=== PATIENT | male | born 1960 | race Two or more races ===

== ENCOUNTER 2018-09-10 12:47 | Emergency (ER) | payer OTHER ==
[2018-09-10 13:43] LABS: URINE BLOOD (Dip) POC Trace-intact (NEGATIVE); URINE KETONES (Dip) POC Negative (NEGATIVE); URINE LEUKOCYTE EST (Dip) POC 2+ (NEGATIVE); URINE NITRITE (Dip) POC Negative (NEGATIVE); URINE TOTAL PROTEIN POC Trace (NEGATIVE)
[2018-09-10 13:43] LABS: URINE PH (Dip) POC 6.5 (5.0-8.5)
[2018-09-10 13:54] LABS: ADD MAN DIFF? NO
[2018-09-10 13:57] LABS: WHITE BLOOD COUNT 20.9 10^3/ul (4.8-10.8)
[2018-09-10 13:57] LABS: BASOPHIL # 0.1 10^3/ul (0.0-0.1); BASOPHILS % 0.4 % (0.0-2.0); EOSINOPHILS # 0.1 10^3/ul (0.0-0.5); EOSINOPHILS % 0.2 % (0.0-7.0); HEMATOCRIT 43.7 % (42.0-52.0); HEMOGLOBIN 15.1 g/dl (14.0-18.0); LYMPHOCYTES # 1.5 10^3/ul (0.8-2.9); LYMPHOCYTES % 7.3 % (15.0-51.0); MEAN CORPUSCULAR HEMOGLOBIN 29.5 pg (29.0-33.0); MEAN CORPUSCULAR HGB CONC 34.6 g/dl (32.0-37.0); MEAN CORPUSCULAR VOLUME 85.4 fl (82.0-101.0); MEAN PLATELET VOLUME 10.1 fl (7.4-10.4); MONOCYTE # 1.1 10^3/ul (0.3-0.9); MONOCYTES % 5.1 % (0.0-11.0); PLATELET COUNT 247 10^3/UL (140-415); RED BLOOD COUNT 5.12 10^6/ul (4.70-6.10); RED CELL DISTRIBUTION WIDTH 12.9 % (11.5-14.5)
[2018-09-10 14:05] LABS: UR AMORPHOUS CRYSTAL FEW /HPF (NONE SEEN); UR BACTERIA FEW /HPF (NONE SEEN); UR RBC 3 /HPF (0-5); UR WBC 80 /HPF (0-5)
[2018-09-10 14:13] LABS: ADD UMIC YES; UR ASCORBIC ACID NEGATIVE (NEGATIVE); UR BILIRUBIN (Dip) NEGATIVE (NEGATIVE); UR BLOOD (Dip) 1+ mg/dL (NEGATIVE); UR CLARITY SLIGHTLY CLOUDY (CLEAR); UR COLOR YELLOW (YELLOW); UR GLUCOSE (Dip) 2+ mg/dL (NEGATIVE); UR KETONES (Dip) NEGATIVE (NEGATIVE); UR LEUKOCYTE ESTERASE (Dip) 3+ Leu/ul (NEGATIVE); UR NITRITE (Dip) NEGATIVE (NEGATIVE); UR SPECIFIC GRAVITY (Dip) 1.011 (1.003-1.030); UR TOTAL PROTEIN (Dip) NEGATIVE (NEGATIVE); UR UROBILINOGEN (Dip) NEGATIVE (NEGATIVE)
[2018-09-10 14:15] LABS: ALANINE AMINOTRANSFERASE 18 IU/L (13-69); ALBUMIN 4.4 g/dl (3.3-4.9); ALBUMIN/GLOBULIN RATIO 1.29; ALKALINE PHOSPHATASE 85 IU/L (42-121); ANION GAP 14 (5-13); ASPARTATE AMINO TRANSFERASE 18 IU/L (15-46); BILIRUBIN,INDIRECT 1.1 mg/dl (0-1.1); BILIRUBIN,TOTAL 1.1 mg/dl (0.2-1.3); BLOOD UREA NITROGEN 16 mg/dl (7-20); CARBON DIOXIDE 26 mmol/L (21-31); CHLORIDE 96 mmol/L (97-110); Estimated GFR > 60 mL/min (>60); GLUCOSE 212 mg/dl (70-220); POTASSIUM 4.1 mmol/L (3.5-5.1); SODIUM 136 mmol/L (135-144); TOTAL PROTEIN 7.8 g/dl (6.1-8.1)
[2018-09-10] MEDS: CEFTRIAXONE 1 GM INJ IM (15:57)
[2018-09-10] MEDS: LIDOCAINE 1% (MPF) 5 ML VIAL INFIL (15:57)
== END 2018-09-10 16:22 | disposition home or self-care (01) ==
LOC: FTE 12:47
DX: K59.00 Constipation, unspecified (principal); N39.0 Urinary tract infection, site not specified
CPT/HCPCS: 36415; 74018; 80053; 81001; 81003; 85025; 87086; 96372; 99284-25

== ENCOUNTER 2018-10-15 20:54 | Emergency (ER) | payer OTHER ==
[2018-10-15 22:01] LABS: ADD MAN DIFF? NO
[2018-10-15 22:03] LABS: WHITE BLOOD COUNT 9.5 10^3/ul (4.8-10.8)
[2018-10-15 22:03] LABS: BASOPHILS % 0.4 % (0.0-2.0); EOSINOPHILS # 0.3 10^3/ul (0.0-0.5); EOSINOPHILS % 3.4 % (0.0-7.0); HEMATOCRIT 40.3 % (42.0-52.0); HEMOGLOBIN 13.7 g/dl (14.0-18.0); LYMPHOCYTES # 2.2 10^3/ul (0.8-2.9); LYMPHOCYTES % 22.8 % (15.0-51.0); MEAN CORPUSCULAR HEMOGLOBIN 29.7 pg (29.0-33.0); MEAN CORPUSCULAR VOLUME 87.4 fl (82.0-101.0); MEAN PLATELET VOLUME 9.9 fl (7.4-10.4); MONOCYTES % 10.9 % (0.0-11.0); NEUTROPHIL # 5.9 10^3/ul (1.6-7.5); NEUTROPHILS % 62.2 % (39.0-77.0); PLATELET COUNT 271 10^3/UL (140-415); RED BLOOD COUNT 4.61 10^6/ul (4.70-6.10); RED CELL DISTRIBUTION WIDTH 13.2 % (11.5-14.5)
[2018-10-15 22:23] LABS: ALANINE AMINOTRANSFERASE 28 IU/L (13-69); ALBUMIN/GLOBULIN RATIO 1.25; ALKALINE PHOSPHATASE 75 IU/L (42-121); ANION GAP 8 (5-13); ASPARTATE AMINO TRANSFERASE 20 IU/L (15-46); BILIRUBIN,INDIRECT 0.5 mg/dl (0-1.1); BILIRUBIN,TOTAL 0.5 mg/dl (0.2-1.3); BLOOD UREA NITROGEN 15 mg/dl (7-20); CALCIUM 9.1 mg/dl (8.4-10.2); CARBON DIOXIDE 26 mmol/L (21-31); CHLORIDE 106 mmol/L (97-110); CREATININE 0.65 mg/dl (0.61-1.24); Estimated GFR > 60 mL/min (>60); GLUCOSE 241 mg/dl (70-220); POTASSIUM 3.7 mmol/L (3.5-5.1); SODIUM 140 mmol/L (135-144); TOTAL PROTEIN 7.2 g/dl (6.1-8.1); URIC ACID 4.7 mg/dl (3.1-7.9)
[2018-10-15] MEDS: KETOROLAC 60 MG INJ IM (23:15)
== END 2018-10-15 23:36 | disposition home or self-care (01) ==
LOC: FTE 20:54
DX: M25.531 Pain in right wrist (principal); I10 Essential (primary) hypertension; E11.9 Type 2 diabetes mellitus without complications; F17.210 Nicotine dependence, cigarettes, uncomplicated; Z87.39 Personal history of other diseases of the musculoskeletal system and connective tissue
CPT/HCPCS: 80053; 84560; 85025; 96372; 99284-25

== ENCOUNTER 2018-12-19 10:55 | Emergency (ER) | payer OTHER ==
[2018-12-19] MEDS: KETOROLAC 30 MG INJ IM (11:51)
[2018-12-19] MEDS: CYCLOBENZAPRINE 10 MG TAB PO (11:51)
== END 2018-12-19 12:42 | disposition home or self-care (01) ==
LOC: FTE 12:42
DX: M54.5 Low back pain (principal); M62.838 Other muscle spasm; I10 Essential (primary) hypertension; Z87.891 Personal history of nicotine dependence
CPT/HCPCS: 96372; 99284-25

== ENCOUNTER 2019-02-06 10:56 | Emergency (ER) | payer OTHER ==
[2019-02-06] MEDS: KETOROLAC 60 MG INJ IM (12:50)
== END 2019-02-06 13:51 | disposition home or self-care (01) ==
LOC: FTE 10:56
DX: M25.512 Pain in left shoulder (principal); I10 Essential (primary) hypertension; F17.210 Nicotine dependence, cigarettes, uncomplicated
CPT/HCPCS: 73030; 96372; 99284-25

== ENCOUNTER 2019-02-22 20:32 | Emergency (ER) | payer OTHER ==
[2019-02-22] MEDS: DEXAMETHASONE 10 MG/ML 1 ML INJ IM (23:02)
[2019-02-22] MEDS: KETOROLAC 30 MG INJ IM (23:02)
== END 2019-02-22 23:30 | disposition home or self-care (01) ==
LOC: FTE 20:32
DX: M25.552 Pain in left hip (principal); I10 Essential (primary) hypertension; E11.9 Type 2 diabetes mellitus without complications; Z87.891 Personal history of nicotine dependence
CPT/HCPCS: 96372; 99284-25